=== PATIENT | female | born 1940 | race Caucasian/White ===

== ENCOUNTER 2023-06-17 13:24 | Outpatient (CLI) | payer MEDICARE, BC ==
[~2023-06-17 13:24] MED LIST: Iopamidol 370 76% 100 ML VIAL ONE
== END 2023-06-17 13:25 | disposition home or self-care (01) ==
LOC: CSHCT 13:24
PROVIDERS: ATTEND Internal Medicine
DX: R10.32 Left lower quadrant pain (principal)
CPT/HCPCS: 74177; 82565

== ENCOUNTER 2024-04-27 12:34 | Outpatient (CLI) | payer MEDICARE, BC | END 2024-04-27 12:35 | disposition home or self-care (01) | LOC: CSHCP 12:34 | PROVIDERS: ATTEND Internal Medicine Cardiovascular Disease | DX: I35.0 Nonrheumatic aortic (valve) stenosis (principal); J44.9 Chronic obstructive pulmonary disease, unspecified | CPT/HCPCS: 94010; 94726; 94729; 94760 ==